=== PATIENT | female | born 1970 | race Caucasian/White ===

== ENCOUNTER 2022-11-17 08:10 | Outpatient (CLI) | payer OTHER ==
[2022-11-17] MEDS ORDERED: Iopamidol 370 76% 100 ML VIAL ONE (13:03)
== END 2022-11-17 08:11 | disposition home or self-care (01) ==
LOC: CT 08:10
PROVIDERS: ATTEND Surgery
DX: K43.9 Ventral hernia without obstruction or gangrene (principal); K42.9 Umbilical hernia without obstruction or gangrene
CPT/HCPCS: 74177

== ENCOUNTER 2022-12-15 08:57 | Outpatient (CLI) | payer OTHER ==
[2022-12-15 09:57] LABS: #Basophils 0.1 10x3/uL (0.0-0.2); #Eosinphils 0.4 10x3/uL (0.0-0.5); #Monocytes 0.5 10x3/uL (0.0-1.1); #Neutrophils 3.4 10x3/uL (1.5-8.4); %Basophils 1.1 % (0.0-2.0); %Lymphocytes 29.3 % (18.0-47.0); %Monocytes 8.1 % (0.0-10.0); %Neutrophils 54.2 % (40.0-75.0); Hemoglobin 13.2 g/dL (12.0-15.5); Mean Corpuscular HGB CONC 32.3 g/dL (32.0-36.0); Mean Corpuscular Hemoglobin 28.1 pg (27.0-33.0); Mean Corpuscular Volume 87.2 fl (81.6-98.3); Mean Platelet Volume 10.3 fl (7.4-10.4); Platelet Count 204 10x3/uL (150-450); RBC Distribution Width 12.7 % (11.5-14.5); Red Blood Cell (RBC) Count 4.69 10x6/uL (3.90-5.03); White Blood Cell (WBC) Count 6.2 10x3/uL (3.5-10.5)
[2022-12-15 09:58] LABS: Anion Gap 15 mmol/L (10-20); BUN (Urea Nitrogen) 16 mg/dL (9.8-20.1); Calc. Creatinine Clearance 0 mL/min (70-130); Calcium 8.8 mg/dL (7.8-10.44); Carbon Dioxide 23 mmol/L (22-29); Chloride 105 mmol/L (98-107); Estimated GFR 99; Glucose 119 mg/dL (70-105); Potassium 4.1 mmol/L (3.5-5.1); Sodium 139 mmol/L (136-145)
== END 2022-12-15 08:58 | disposition home or self-care (01) ==
LOC: LABBT 08:57
PROVIDERS: ATTEND Surgery
DX: Z01.818 Encounter for other preprocedural examination (principal); K43.9 Ventral hernia without obstruction or gangrene
CPT/HCPCS: 80048; 85025; 93005; 93010

== ENCOUNTER 2022-12-23 05:43 | Observation (INO) | payer OTHER ==
[2022-12-19 15:47] VITALS: BMI 42.7
[2022-12-23] MEDS ORDERED: Ketorolac Tromethamine 30 MG/ML VIAL ONE (06:24)
[2022-12-23] MEDS ORDERED: ePHEDrine Sulfate 50 MG/10 ML VIAL ONE (06:24)
[2022-12-23] MEDS ORDERED: Rocuronium Bromide 10 MG/ML (10ML VIAL) ONE (06:24)
[2022-12-23] MEDS ORDERED: Ondansetron PF 4 MG/2 ML Vial ONE ×2 (06:24→11:04)
[2022-12-23] MEDS ORDERED: PROPOFOL 200 MG/20 ML VIAL ONE (06:24)
[2022-12-23] MEDS ORDERED: Lidocaine 1% PF 5 ML VIAL ONE (06:24)
[2022-12-23] MEDS ORDERED: PHENYLEPHRINE-NS 100 MCG/ML 10 ML SYRINGE ONE (06:24)
[2022-12-23] MEDS ORDERED: Metoclopramide HCl 10 MG/2 ML VIAL ONE (06:24)
[2022-12-23] MEDS ORDERED: Fentanyl 250 MCG/5 ML VIAL ONE (06:43)
[2022-12-23] MEDS ORDERED: Midazolam HCl 2 mg/2 ml Vial ONE ×2 (06:43→07:09)
[2022-12-23] MEDS ORDERED: SUGAMMADEX SODIUM 200 MG/2 ML VIAL ONE (06:59)
[2022-12-23] MEDS ORDERED: Lidocaine 2% 6 ML SYR ONE (06:59)
[2022-12-23] MEDS ORDERED: Scopolamine 1.5 mg/72 hour Patch ONE (07:09)
[2022-12-23] MEDS ORDERED: Sodium Chloride 0.9% 100 ML ONE (07:34)
[2022-12-23] MEDS ORDERED: CEFAZOLIN 2 GM VIAL ONE (07:34)
[2022-12-23] MEDS ORDERED: Bupivacaine/Epinephrine 0.25% 30 ML VIAL ONE (07:57)
[2022-12-23] MEDS ORDERED: Vasopressin 20 UNITS/ML VIAL ONE (08:46)
[2022-12-23] MEDS ORDERED: Rocuronium Bromide 50 MG/5 ML VIAL ONE (08:46)
[2022-12-23] MEDS ORDERED: Ondansetron PF 4 MG/2 ML Vial IVP PRN ×2 (09:35→09:49)
[2022-12-23] MEDS ORDERED: diphenhydrAMINE 50 MG/ML VIAL IM PRN (09:35)
[2022-12-23] MEDS ORDERED: FENTANYL 500 MCG/10 ML VIAL 2,000 MCG in Sodium Chloride 0.9% 60 ML IV PRN (09:35)
[2022-12-23] MEDS ORDERED: Promethazine HCl 25 MG/ML VIAL IM PRN ×3 (09:35→09:49)
[2022-12-23] MEDS ORDERED: diphenhydrAMINE 50 MG/ML VIAL IVP PRN (09:35)
[2022-12-23] MEDS ORDERED: Zolpidem Tartrate 5 MG TAB PO PRN (09:35)
[2022-12-23] MEDS ORDERED: diphenhydrAMINE 25 MG CAP PO PRN (09:35)
[2022-12-23] MEDS ORDERED: Naloxone HCl 0.4 mg/ml Vial IV PRN (09:35)
[2022-12-23] MEDS ORDERED: HYDROmorphone 2 MG/ML VIAL SLOW IVP PRN (09:36)
[2022-12-23] MEDS ORDERED: Ondansetron HCl/PF 4 MG/2 ML Vial IVP PRN (09:36)
[2022-12-23] MEDS ORDERED: Communication Order-Pharmacy FS SCH (09:45)
[2022-12-23] MEDS ORDERED: Promethazine HCl 25 MG/ML VIAL ONE (09:46)
[2022-12-23] MEDS ORDERED: Ipratropium/Albuterol 3 ML NEB NEB PRN (09:49)
[2022-12-23] MEDS ORDERED: HYDROcodone/Acetaminophen 7.5/325 mg Tablet PO PRN ×2 (09:49)
[2022-12-23] MEDS ORDERED: Dextrose 50% Abboject 50 ML SYRINGE SLOW IVP PRN (09:49)
[2022-12-23] MEDS ORDERED: Dextrose 5% in Water 1,000 ML IV PRN (09:49)
[2022-12-23] MEDS ORDERED: hydrALAZINE 20 MG/ML VIAL SLOW IVP PRN (09:49)
[2022-12-23] MEDS ORDERED: Morphine 4 MG/ML VIAL SLOW IVP PRN (09:49)
[2022-12-23] MEDS: Sodium Chloride 0.9% 1,000 ML IV SCH ×2 (10:56→21:05)
[2022-12-23] MEDS ORDERED: diphenhydrAMINE 50 MG/ML VIAL ONE (11:23)
[2022-12-23] MEDS: Atenolol 50 MG TAB PO SCH (21:05)
[2022-12-23] MEDS: Famotidine 20 MG TAB PO SCH (21:05)
[2022-12-23] MEDS: Famotidine/PF 20 mg/2ml Vial SLOW IVP SCH (21:06)
[2022-12-24 06:02] LABS: #Lymphocytes 1.2 thou/uL (1.20-3.40); #Neutrophils 5.1 thou/uL (1.40-6.50); %Basophils 0.3 % (0.0-1.0); %Eosinophils 0.3 % (0.0-10.0); %Lymphocytes 16.8 % (21.0-51.0); %Monocytes 12.9 % (0.0-10.0); %Neutrophils 69.7 % (42.0-75.0); Hemoglobin 11.4 g/dL (12.0-16.0); Mean Corpuscular HGB CONC 34.9 g/dL (32.0-36.0); Mean Corpuscular Hemoglobin 30.5 pg (27.0-31.0); Mean Corpuscular Volume 87.4 fl (78.0-98.0); Platelet Count 162 10x3/uL (130-400); RBC Distribution Width 12.3 % (11.5-14.5); Red Blood Cell (RBC) Count 3.73 mill/uL (4.20-5.40); White Blood Cell (WBC) Count 7.4 10x3/uL (4.8-10.8)
[2022-12-24 06:15] LABS: Anion Gap 12 mmol/L (10-20); BUN (Urea Nitrogen) 17 mg/dL (9.8-20.1); Calc. Creatinine Clearance 134 mL/min (70-130); Calcium 8.5 mg/dL (7.8-10.44); Carbon Dioxide 24 mmol/L (22-29); Chloride 107 mmol/L (98-107); Estimated GFR 78; Glucose 186 mg/dL (70-105); Sodium 139 mmol/L (136-145)
[2022-12-24] MEDS ORDERED: Sodium Chloride 0.9% 1,000 ML IV SCH (07:47)
[2022-12-24] MEDS: Famotidine/PF 20 mg/2ml Vial SLOW IVP SCH ×2 (09:59→21:26)
[2022-12-24] MEDS: Famotidine 20 MG TAB PO SCH ×2 (10:02→20:22)
[2022-12-24] MEDS ORDERED: HYDROcodone/Acetaminophen 5/325 mg Tablet PO PRN (10:17)
[2022-12-24] MEDS: HumaLOG 300 UNITS/3 ML VIAL SC PRN ×2 (12:49→21:30)
[2022-12-24] MEDS: HYDROcodone/Acetaminophen 10/325 mg Tablet PO PRN ×2 (15:52→20:22)
[2022-12-24] MEDS: Atenolol 50 MG TAB PO SCH (20:22)
[2022-12-25] MEDS: HYDROcodone/Acetaminophen 10/325 mg Tablet PO PRN (10:15)
[2022-12-25] MEDS: Famotidine 20 MG TAB PO SCH (10:15)
[2022-12-25] MEDS: Famotidine/PF 20 mg/2ml Vial SLOW IVP SCH (10:16)
[2022-12-25 18:13] VITALS: BP 115/62; TEMP 98.5
== END 2022-12-25 18:15 | disposition home or self-care (01) ==
LOC: SDC 05:43 → SJJU 12:19
PROVIDERS: ADMIT Surgery; ATTEND Surgery
PROC: 0WUF0JZ Supplement Abdominal Wall with Synthetic Substitute, Open Approach (ICD-10-PCS; principal; 2022-12-23)
DX: K43.6 Other and unspecified ventral hernia with obstruction, without gangrene (principal); M19.90 Unspecified osteoarthritis, unspecified site; E78.00 Pure hypercholesterolemia, unspecified; E11.9 Type 2 diabetes mellitus without complications; I10 Essential (primary) hypertension; Z53.31 Laparoscopic surgical procedure converted to open procedure; Z87.891 Personal history of nicotine dependence; Z79.82 Long term (current) use of aspirin; Z79.84 Long term (current) use of oral hypoglycemic drugs; Z79.899 Other long term (current) drug therapy
CPT/HCPCS: 36415; 36416; 80048; 85025; 96374; 96375; C1889; G0378; J1200; J1815; J1885; J2250; J2405; J2550; J2704; J2765; J3010; J3490; J7050; S0028